=== PATIENT | female | born 1960 | race Hispanic/Latino ===

== ENCOUNTER 2020-09-29 15:07 | Emergency (ER) | payer MEDICAID ==
[~2020-09-29] VITALS: Ht 144.8 cm; Wt 61.2 kg
[2020-09-29 15:09] VITALS: BP 113/60
[2020-09-29 16:04] LABS: BASOPHILS % (AUTO) 0.5 % (0.0-5.0); EOSINOPHILS % (AUTO) 0.8 % (0.0-8.0); HEMATOCRIT 40.9 % (36-48); MEAN CORPUSCULAR HEMOGLOBIN 29.4 pg (27.0-33.0); MEAN CORPUSCULAR VOLUME 91.9 fL (79-99); MONOCYTES % (AUTO) 7.1 % (3.0-13.0); NEUTROPHILS % (AUTO) 59.3 % (40.0-77.0); PLATELET COUNT (AUTO) 143 K/uL (130-400); RED BLOOD CELL COUNT(AUTO) 4.45 MIL/uL (4.00-5.50); RED CELL DISTRIBUTION WIDTH 12.8 % (11.0-15.5); WHITE BLOOD COUNT (AUTO) 7.7 K/uL (4.8-10.8)
[2020-09-29 16:13] LABS: CARBON DIOXIDE 33 mmol/L (21-32); CHLORIDE 105 mmol/L (101-111); CREATININE 0.6 mg/dL (0.5-1.5); GLOMERULAR FILTR. RATE CALC 108 mL/min (>60); GLUCOSE,RANDOM 98 mg/dL (70-105); POTASSIUM 4.3 mmol/L (3.5-5.1); SODIUM SERUM 145 mmol/L (136-145); UREA NITROGEN, BLOOD 18 mg/dL (7-18)
[2020-09-29 16:15] LABS: PROTHROMBIN TIME 10.9 SEC (9.6-11.6)
[2020-09-29 16:17] LABS: PARTIAL THROMBOPLASTIN TIME 23.2 SEC (26.3-35.5)
[2020-09-29 16:31] LABS: ALANINE AMINOTRANSFERASE 16 U/L (12-78); ALBUMIN 3.3 g/dL (3.5-5.0); ASPARTATE AMINOTRANSFERASE 19 U/L (10-37); BILIRUBIN,TOTAL 0.1 mg/dL (0.2-1.0); CREATINE KINASE, TOTAL 72 U/L (21-232); MYOGLOBIN 26 ng/mL (10-92); TOTAL PROTEIN, SERUM 7.5 g/dL (6.0-8.3); TROPONIN I < 0.04 ng/mL (0.00-0.06)
[2020-09-29 16:37] LABS: B-TYPE NATRIURETIC PEPTIDE 62 pg/mL (0-100)
[2020-09-29 16:57] VITALS: BP 102/45
[2020-09-29 18:24] VITALS: BP 99/59
[2020-09-29 20:53] VITALS: BP 112/65
== END 2020-09-29 20:54 | disposition home or self-care (01) ==
LOC: EDH 15:07
DX: G40.909 Epilepsy, unspecified, not intractable, without status epilepticus (principal); M62.81 Muscle weakness (generalized); R55 Syncope and collapse; R41.0 Disorientation, unspecified; Z86.73 Personal history of transient ischemic attack (TIA), and cerebral infarction without residual deficits; Z98.890 Other specified postprocedural states
CPT/HCPCS: 36415; 70450; 71045; 80053; 82550; 82948; 83874; 83880; 84484; 85025; 85610; 85730; 93005

== ENCOUNTER 2021-03-17 10:02 | Emergency (ER) | payer MEDICAID ==
[~2021-03-17] VITALS: Ht 149.9 cm; Wt 69.9 kg
[2021-03-17 10:40] LABS: BASOPHILS % (AUTO) 0.4 % (0.0-5.0); EOSINOPHILS % (AUTO) 0.3 % (0.0-8.0); HEMATOCRIT 41.1 % (36-48); LYMPHOCYTES % (AUTO) 24.4 % (21.0-51.0); MEAN CORPUSCULAR HEMOGLOBIN 28.7 pg (27.0-33.0); MEAN CORPUSCULAR HGB CONC 31.9 g/dL (32.0-36.0); MEAN CORPUSCULAR VOLUME 89.9 fL (79-99); MONOCYTES % (AUTO) 5.4 % (3.0-13.0); NEUTROPHILS % (AUTO) 69.1 % (40.0-77.0); PLATELET COUNT (AUTO) 184 K/uL (130-400); RED BLOOD CELL COUNT(AUTO) 4.57 MIL/uL (4.00-5.50); RED CELL DISTRIBUTION WIDTH 13.6 % (11.0-15.5); WHITE BLOOD COUNT (AUTO) 10.6 K/uL (4.8-10.8)
[2021-03-17] MEDS ORDERED: LACO50TA2 PO (10:58)
[2021-03-17] MEDS ORDERED: PHEN100C9 PO (10:58)
[2021-03-17] MEDS ORDERED: LAMO100T16 PO (10:58)
[2021-03-17] MEDS ORDERED: LEVE10006 PO (10:58)
[2021-03-17 12:21] LABS: ALBUMIN 3.3 g/dL (3.5-5.0); BILIRUBIN,TOTAL 0.2 mg/dL (0.2-1.0); CREATININE 0.7 mg/dL (0.5-1.5); POTASSIUM 4.1 mmol/L (3.5-5.1); TOTAL PROTEIN, SERUM 7.5 g/dL (6.0-8.3)
[2021-03-17 13:22] VITALS: BP 145/78
[2021-03-17] MEDS ORDERED: LEVETIRACETAM 1,000 MG in 0.9%NACL 100ML 100 ML IV SCH (14:00)
== END 2021-03-17 13:23 | disposition home or self-care (01) ==
LOC: EDH 10:02
DX: G40.909 Epilepsy, unspecified, not intractable, without status epilepticus (principal); M25.561 Pain in right knee; M25.562 Pain in left knee; Z86.73 Personal history of transient ischemic attack (TIA), and cerebral infarction without residual deficits; Z79.899 Other long term (current) drug therapy; W18.39XA Other fall on same level, initial encounter; Y93.89 Activity, other specified; Y92.89 Other specified places as the place of occurrence of the external cause; Y99.8 Other external cause status
CPT/HCPCS: 36415; 70450; 72125; 73562 ×2; 80053; 80177; 80185; 85025; 96365; 99285; J1953

== ENCOUNTER 2021-06-13 17:45 | Emergency (ER) | payer MEDICAID ==
[~2021-06-13] VITALS: Ht 149.9 cm; Wt 71.7 kg
[~2021-06-13 17:45] MED LIST: LACO50TA2 PO; LAMO100T16 PO; LEVE10006 PO; PHEN100C9 PO
[2021-06-13] MEDS ORDERED: HYDROXYZINE 25 MG TABLET PO ONE (19:00)
[2021-06-13] MEDS ORDERED: GUAIFENESIN-CODEINE 5 ML SYRUP PO ONE (19:00)
[2021-06-13] MEDS ORDERED: D-ME1POW16 PO (19:37)
[2021-06-13] MEDS ORDERED: OSEL75 PO (19:37)
[2021-06-13 20:00] VITALS: BP 119/74
[2021-06-13] MEDS ORDERED: OSELTAMIVIR PHOSPHATE 75 MG CAP PO SCH (20:00)
== END 2021-06-13 20:01 | disposition home or self-care (01) ==
LOC: EDH 17:45
DX: J10.1 Influenza due to other identified influenza virus with other respiratory manifestations (principal); G40.909 Epilepsy, unspecified, not intractable, without status epilepticus; Z20.822 Contact with and (suspected) exposure to COVID-19; Z79.899 Other long term (current) drug therapy
CPT/HCPCS: 71045; 87635; 87804 ×2; 99284; C9803

== ENCOUNTER 2021-07-24 12:03 | Emergency (ER) | payer MEDICAID ==
[~2021-07-24 12:03] MED LIST changes: +D-ME1POW16 PO; +OSEL75 PO
[2021-07-24 12:52] LABS: BASOPHILS % (AUTO) 0.5 % (0.0-5.0); EOSINOPHILS % (AUTO) 1.8 % (0.0-8.0); HEMATOCRIT 40.7 % (36-48); LYMPHOCYTES % (AUTO) 38.1 % (21.0-51.0); MEAN CORPUSCULAR HEMOGLOBIN 29.8 pg (27.0-33.0); MEAN CORPUSCULAR HGB CONC 33.2 g/dL (32.0-36.0); MEAN CORPUSCULAR VOLUME 89.8 fL (79-99); MONOCYTES % (AUTO) 6.9 % (3.0-13.0); NEUTROPHILS % (AUTO) 52.4 % (40.0-77.0); PLATELET COUNT (AUTO) 177 K/uL (130-400); RED BLOOD CELL COUNT(AUTO) 4.53 MIL/uL (4.00-5.50); WHITE BLOOD COUNT (AUTO) 6.5 K/uL (4.8-10.8)
[2021-07-24 12:56] LABS: CREATININE 0.5 mg/dL (0.5-1.5); POTASSIUM 3.9 mmol/L (3.5-5.1)
[2021-07-24 13:00] LABS: ALBUMIN 3.2 g/dL (3.5-5.0); BILIRUBIN,TOTAL 0.2 mg/dL (0.2-1.0); PHENYTOIN (DILANTIN) 29.3 mcg/mL (10.0-20.0); TOTAL PROTEIN, SERUM 7.6 g/dL (6.0-8.3)
[2021-07-24] MEDS ORDERED: LORAZEPAM 2 MG/ML 1 ML VIAL IVP ONE (13:30)
[2021-07-24] MEDS ORDERED: 0.9%NACL 1000ML 1,000 ML IV ONE (13:30)
[2021-07-24] MEDS ORDERED: LORAZEPAM 2 MG/ML 1 ML VIAL ONE (13:31)
[2021-07-24 14:01] LABS: APPEARANCE,URINE Cloudy (CLEAR); BILIRUBIN,URINE Negative (NEGATIVE); COLOR,URINE Yellow (YELLOW); GLUCOSE, URINE (UA) Negative (NEGATIVE); KETONES,URINE Negative (NEGATIVE); LEUKOCYTE ESTERASE ,URINE Large (NEGATIVE); NITRATE,URINE Negative (NEGATIVE); OCCULT BLOOD,URINE Trace (NEGATIVE); PROTEIN,URINE Negative (NEGATIVE); UROBILINOGEN,URINE 0.2 mg/dL (0.2-1.0)
[2021-07-24 14:08] LABS: BACTERIA,URINE Few /HPF (None Seen); RBC,URINE 26-50 /HPF (0-1); SQUAMOUS EPITHELIAL CELL,UR Rare /HPF (0-2); TRANSITIONAL EPI CELLS,URINE Few /HPF (None Seen)
[2021-07-24] MEDS ORDERED: CEFTRIAXONE 1G VIAL ONE (14:58)
[2021-07-24] MEDS ORDERED: CEFTRIAXONE 1G VIAL IVP ONE (15:00)
[2021-07-24 15:07] VITALS: BP 125/77
[2021-07-24] MEDS ORDERED: CEPH500B PO (16:42)
== END 2021-07-24 16:49 | disposition home or self-care (01) ==
LOC: EDH 12:03
DX: G40.89 Other seizures (principal); N39.0 Urinary tract infection, site not specified; Z79.899 Other long term (current) drug therapy; Z20.822 Contact with and (suspected) exposure to COVID-19
CPT/HCPCS: 36415; 70450; 71045; 80053; 80177; 80185 ×2; 81001; 82542; 85025; 87088; 87635; 87804 ×2; 93005; 96361; 96374; 96375; 99285; C9803; J0696; J2060; J7030

== ENCOUNTER 2021-09-05 18:15 | Emergency (ER) | payer MEDICAID ==
[~2021-09-05] VITALS: Ht 152.4 cm; Wt 68.0 kg
[~2021-09-05 18:15] MED LIST changes: +CEPH500B PO
[2021-09-05 18:17] VITALS: BP 123/73
[2021-09-05] MEDS ORDERED: HYDROCODONE/ACETAMINOPHEN 5/325 MG TAB PO ONE (18:30)
[2021-09-05] MEDS ORDERED: ACET-2247 PO (19:39)
== END 2021-09-05 20:11 | disposition home or self-care (01) ==
LOC: EDH 18:15
DX: S52.611A Displaced fracture of right ulna styloid process, initial encounter for closed fracture (principal); S52.501A Unspecified fracture of the lower end of right radius, initial encounter for closed fracture; G40.909 Epilepsy, unspecified, not intractable, without status epilepticus; Z79.899 Other long term (current) drug therapy; W18.39XA Other fall on same level, initial encounter; Y93.89 Activity, other specified; Y92.098 Other place in other non-institutional residence as the place of occurrence of the external cause; Y99.8 Other external cause status
CPT/HCPCS: 29125; 73110; 73130

== ENCOUNTER 2021-11-20 22:22 | Emergency (ER) | payer MEDICAID ==
[~2021-11-20] VITALS: Ht 154.9 cm; Wt 121.6 kg
[~2021-11-20 22:22] MED LIST changes: +ACET-2247 PO
[2021-11-20 22:46] LABS: BASOPHILS % (AUTO) 0.3 % (0.0-5.0); EOSINOPHILS % (AUTO) 1.3 % (0.0-8.0); HEMATOCRIT 38.9 % (36-48); LYMPHOCYTES % (AUTO) 41.9 % (21.0-51.0); MEAN CORPUSCULAR HEMOGLOBIN 28.9 pg (27.0-33.0); MEAN CORPUSCULAR HGB CONC 32.9 g/dL (32.0-36.0); MEAN CORPUSCULAR VOLUME 87.8 fL (79-99); MONOCYTES % (AUTO) 8.9 % (3.0-13.0); PLATELET COUNT (AUTO) 164 K/uL (130-400); RED BLOOD CELL COUNT(AUTO) 4.43 MIL/uL (4.00-5.50); RED CELL DISTRIBUTION WIDTH 12.2 % (11.0-15.5)
[2021-11-20] MEDS ORDERED: 0.9%NACL 100ML 100 ML IV SCH (23:00)
[2021-11-20] MEDS ORDERED: LEVETIRACETAM 500 MG/5 ML SD VIAL IV SCH (23:00)
[2021-11-20 23:04] LABS: APPEARANCE,URINE CLEAR (CLEAR); BILIRUBIN,URINE NEGATIVE (NEGATIVE); COLOR,URINE YELLOW (YELLOW); GLUCOSE, URINE (UA) NEGATIVE (NEGATIVE); KETONES,URINE NEGATIVE (NEGATIVE); LEUKOCYTE ESTERASE ,URINE SMALL (NEGATIVE); NITRATE,URINE NEGATIVE (NEGATIVE); OCCULT BLOOD,URINE SMALL (NEGATIVE); PROTEIN,URINE NEGATIVE (NEGATIVE); UROBILINOGEN,URINE 0.2 mg/dL (0.2-1.0)
[2021-11-20 23:05] LABS: ALBUMIN 3.4 g/dL (3.5-5.0); CREATININE 0.8 mg/dL (0.5-1.5); MAGNESIUM 1.8 mg/dL (1.80-2.40); POTASSIUM 3.9 mmol/L (3.5-5.1); TOTAL PROTEIN, SERUM 7.9 g/dL (6.0-8.3)
[2021-11-20 23:10] LABS: BACTERIA,URINE Few /HPF (None Seen); SQUAMOUS EPITHELIAL CELL,UR 0-2 /HPF (0-2)
[2021-11-21 00:44] VITALS: BP 97/59
== END 2021-11-21 00:50 | disposition home or self-care (01) ==
LOC: EDH 22:22
DX: U07.1 COVID-19 (principal); G40.909 Epilepsy, unspecified, not intractable, without status epilepticus; Z86.73 Personal history of transient ischemic attack (TIA), and cerebral infarction without residual deficits; Z79.899 Other long term (current) drug therapy
CPT/HCPCS: 99285; 96365; 71045; 87635; 82550; 83735; 84484; 80053; 85025; 87804 ×2; 82948; 81001; 36415; 93005; C9803; J1953

== ENCOUNTER 2022-03-08 16:19 | Emergency (ER) | payer MEDICAID ==
[~2022-03-08] VITALS: Ht 144.8 cm; Wt 77.1 kg
[2022-03-08 19:44] VITALS: BP 124/68
[2022-03-08 20:03] LABS: BASOPHILS % (AUTO) 0.5 % (0.0-5.0); EOSINOPHILS % (AUTO) 1.1 % (0.0-8.0); HEMATOCRIT 41.3 % (36-48); LYMPHOCYTES % (AUTO) 32.9 % (21.0-51.0); MEAN CORPUSCULAR HEMOGLOBIN 29.2 pg (27.0-33.0); MEAN CORPUSCULAR HGB CONC 32.9 g/dL (32.0-36.0); MEAN CORPUSCULAR VOLUME 88.6 fL (79-99); MONOCYTES % (AUTO) 5.1 % (3.0-13.0); NEUTROPHILS % (AUTO) 60.2 % (40.0-77.0); PLATELET COUNT (AUTO) 212 K/uL (130-400); RED BLOOD CELL COUNT(AUTO) 4.66 MIL/uL (4.00-5.50); RED CELL DISTRIBUTION WIDTH 12.8 % (11.0-15.5); WHITE BLOOD COUNT (AUTO) 9.4 K/uL (4.8-10.8)
[2022-03-08 20:31] LABS: CREATININE 0.7 mg/dL (0.5-1.5); POTASSIUM 3.9 mmol/L (3.5-5.1)
[2022-03-08 20:33] LABS: B-TYPE NATRIURETIC PEPTIDE 26 pg/mL (0-100)
[2022-03-08 20:37] LABS: ALBUMIN 3.6 g/dL (3.5-5.0); TOTAL PROTEIN, SERUM 8.1 g/dL (6.0-8.3)
== END 2022-03-08 20:26 | disposition home or self-care (01) ==
LOC: EDH 16:19
DX: J06.9 Acute upper respiratory infection, unspecified (principal); Z20.822 Contact with and (suspected) exposure to COVID-19
CPT/HCPCS: 99284; 71045; 87635; 80053; 83880; 85025; 87880; 87804 ×2; 36415; C9803